=== PATIENT | female | born 1995 | race African-American/Black ===

== ENCOUNTER 2016-07-23 08:33 | Emergency (ER) | payer MEDICAID ==
[~2016-07-23] VITALS: Ht 165.1 cm; Wt 94.0 kg
[~2016-07-23 08:33] MED LIST: GLIP5TAB73; METF500T4
[2016-07-23 10:30] LABS: BASOPHILS % 0.1 % (0.0-2.0); EOSINOPHILS % 0.9 % (0.0-5.0); HEMATOCRIT. 38.1 % (36.0-48.0); HEMOGLOBIN. 12.4 g/dL (12.0-16.0); LYMPHOCYTES % 20.2 % (20.0-50.0); MEAN CORPUSCULAR HEMOGLOBIN 27.3 pg (28.0-32.0); MEAN CORPUSCULAR HGB CONC 32.6 g/dL (31.0-37.0); MEAN CORPUSCULAR VOLUME 83.8 fL (81.0-99.0); MEAN PLATELET VOLUME 8.9 fl (7.4-10.4); MONOCYTES % 6.7 % (2.0-8.0); NEUTROPHILS % 72.1 % (40.0-76.0); PLATELET 214 x1000/uL (130-400); RED BLOOD CELL COUNT 4.55 mill/uL (4.2-5.4); RED CELL DISTRIBUTION WIDTH 15.8 % (11.6-14.6); WHITE BLOOD COUNT 9.7 x1000/uL (4.5-11.0)
[2016-07-23 10:45] LABS: ANION GAP 12; CALCIUM 9.2 mg/dL (8.5-10.1); CARBON DIOXIDE 27 mEq/L (21-32); CHLORIDE 105 mEq/L (98-107); INDEX HEMOLYSI 1 (1-3); INDEX ICTERIC 1 (1-4); INDEX LIPEMIC 1 (1-3); UREA NITROGEN BLOOD 13 mg/dL (7-21); eGFR > 60 mL/min (>60)
[2016-07-23 10:46] LABS: B-HCG QUANTITATIVE < 1 mIU/mL (<3)
[2016-07-23 11:38] LABS: CLARITY URINE CLEAR (CLEAR); COLOR URINE YELLOW (YELLOW); GLUCOSE URINE 2+ (NEGATIVE); KETONES URINE NEGATIVE (NEGATIVE); LEUKOCYTE ESTERASE URINE NEGATIVE (NEGATIVE); NITRITE URINE NEGATIVE (NEGATIVE); OCCULT BLOOD URINE NEGATIVE (NEGATIVE); PROTEIN URINE NEGATIVE (NEGATIVE); SPECIFIC GRAVITY URINE 1.008 (1.005-1.030); UROBILINOGEN URINE 0.2 E.U./dL (0.2-1.0)
[2016-07-23 12:02] LABS: BACTERIA URINE TRACE; SQUAMOUS EPITHELIAL CELL URINE 1+ /lpf (RARE/1+)
[2016-07-23 12:03] LABS: RBC URINE NONE SEEN /hpf (0-2); WBC URINE 0-2 /hpf (0-2); YEAST URINE RARE
[2016-07-23 13:07] VITALS: BP 119/62
== END 2016-07-23 13:09 | disposition home or self-care (01) ==
LOC: ER 09:52
DX: N76.0 Acute vaginitis (principal); Z88.0 Allergy status to penicillin; Z79.899 Other long term (current) drug therapy; Z87.891 Personal history of nicotine dependence; E11.65 Type 2 diabetes mellitus with hyperglycemia; I10 Essential (primary) hypertension
CPT/HCPCS: 36415; 76830; 76856; 80048; 81001; 81025; 84702; 85025; 86850; 86900; 86901; 87210; 99285; Z7610

== ENCOUNTER 2018-03-15 11:47 | Emergency (ER) | payer MEDICAID ==
[~2018-03-15] VITALS: Ht 165.1 cm; Wt 86.0 kg
[~2018-03-15 11:47] MED LIST changes: +GLIP5TAB3; -GLIP5TAB73; +METF-414; -METF500T4
[2018-03-15 12:03] VITALS: BP 114/71
== END 2018-03-15 16:51 | disposition left against medical advice (07) ==
LOC: ER 13:12
DX: Z53.21 Procedure and treatment not carried out due to patient leaving prior to being seen by health care provider (principal)

== ENCOUNTER 2019-05-03 12:48 | Emergency (ER) | payer MEDICAID ==
[~2019-05-03] VITALS: Ht 165.1 cm; Wt 88.0 kg
[2019-05-03] MEDS ORDERED: LIDOCAINE HCL/EPINEPHRINE 1%-EPI 1:100,000 30 ML VIAL INFIL ONE (14:00)
[2019-05-03] MEDS ORDERED: TETANUS, DIPHTHERIA, PERTUSSIS VAC/PF 0.5ML (>7YR OLD) IM ONE (14:00)
[2019-05-03 14:10] VITALS: BP 145/82
[2019-05-03] MEDS ORDERED: LIDOCAINE HCL/EPINEPHRINE 1%-EPI 1:100,000 20 ML VIAL INFIL SCH (14:15)
== END 2019-05-03 15:32 | disposition home or self-care (01) ==
LOC: ER 12:58
DX: S61.412A Laceration without foreign body of left hand, initial encounter (principal); S61.411A Laceration without foreign body of right hand, initial encounter; S91.201A Unspecified open wound of right great toe with damage to nail, initial encounter; W22.8XXA Striking against or struck by other objects, initial encounter; Y93.89 Activity, other specified; Y92.89 Other specified places as the place of occurrence of the external cause; Y99.8 Other external cause status; E11.9 Type 2 diabetes mellitus without complications; Z88.0 Allergy status to penicillin
CPT/HCPCS: 12002; 90471; 90715; 99283; J3490; Z7610